=== PATIENT | female | born 1955 | race Caucasian/White ===

== ENCOUNTER 2022-10-15 10:43 | Outpatient (REF) | payer OTHER, SELFPAY ==
[2022-10-15 14:05] LABS: MANUAL DIFF FLAG NO
[2022-10-15 14:07] LABS: Basophils Absolute Auto 0.1 X10*3/uL (0.0-0.2); Basophils Percent Auto 1.1 % (0-2); Eosinophils Absolute Auto 0.4 X10*3/uL (0.0-0.4); Hematocrit 40.9 % (37.0-47.0); Hemoglobin 13.4 g/dl (12.0-16.0); Imm Gran Abs Auto 0.01 X10*3/uL (0.00-0.03); Imm Gran Pct Auto 0.1 % (0.0-0.4); Lymphocytes Percent Auto 27.7 % (20-40); Mean Corpuscular HGB Conc 32.8 g/dl (31.0-35.0); Mean Corpuscular Hemoglobin 30.9 pg (27.0-33.0); Mean Corpuscular Volume 94.2 fL (80.0-98.0); Mean Platelet Volume 10.6 fL (9.4-12.3); Monocytes Absolute Auto 0.7 X10*3/uL (0.1-1.2); Monocytes Percent Auto 9.4 % (2-11); Neutrophils Absolute Auto 4.2 x10*3/uL (2.0-8.3); Neutrophils Percent Auto 56.7 % (45-73); Platelet Count 256 X10*3/uL (160-400); Red Blood Count 4.34 X10*6/uL (4.20-5.50); Red Cell Distribution Width 12.8 % (11.0-16.0); White Blood Count 7.4 X10*3/uL (4.8-10.8)
[2022-10-15 14:13] LABS: Appearance Urine Clear; Color Urine Yellow; Glucose Urine UA Negative (Negative); Leukocyte Esterase Urine Small (1+) (Negative); Nitrite Urine Negative (Negative); PH 6.5 (5.0-9.0); Specific Gravity - Urine 1.015 (1.005-1.025); UMIC TRIGGER UA YES; Urine Blood Negative (Negative); Urine Ketones Negative (Negative); Urine Protein Negative (Neg-Trace)
[2022-10-15 14:22] LABS: Alanine Aminotransferase 10 U/L (0-31); Albumin Level 4.2 g/dL (3.5-5.0); Alkaline Phosphatase 42 U/L (39-117); Anion Gap 14 (12-20); Aspartate Amino Transferase 13 U/L (5-31); Bilirubin Total 0.7 mg/dL (0.0-1.0); Blood Urea Nitrogen 13 mg/dL (9-16); Calcium 9.3 mg/dL (8.4-10.2); Carbon Dioxide 26 mmol/L (22-29); Chloride 105 mmol/L (96-108); Cholesterol 242 mg/dL; Estimated Glomerular Filt Rate > 60; Glucose Fasting 87 mg/dL (60-99); HDL Cholesterol 57 mg/dL; LDL Cholesterol Calculated 166 mg/dl; Potassium 3.5 mmol/L (3.3-5.1); Sodium 141 mmol/L (135-145); Total Protein 6.7 g/dL (6.5-8.0); Triglycerides 95 mg/dL
[2022-10-15 14:30] LABS: Bacteria Urine None Seen (None Seen); Hyaline Casts Urine 0-2 /LPF (0-2)
[2022-10-15 14:36] LABS: TSH reflex Free T4 1.81 uIU/mL (0.32-4.0)
[2022-10-15 15:01] LABS: Microalbum/Creatinine Ratio Ur 5.6 ug/mg cr
== END 2022-10-15 10:44 | disposition home or self-care (01) ==
LOC: HO.WFDLDS 10:43
PROVIDERS: Visit Provider Family Medicine
DX: Z00.00 Encounter for general adult medical examination without abnormal findings (principal); I10 Essential (primary) hypertension
CPT/HCPCS: 36415; 80053; 80061; 81001; 82043; 84443; 85025

== ENCOUNTER 2023-04-13 15:34 | Outpatient (AMB) | payer MEDICARE, SELFPAY ==
--- NOTE | 2023-04-13 15:37 | A.OFFPC_ITS ---
Vital Signs 04/13/23 15:38 Height 5 ft 6 in Weight 136 lb 7 oz BMI 22.0 BP 122/76 Blood Pressure Location Lt brachial Position Sitting Respiration 12 Pulse 95 Pulse Source Pulse Oximeter Temp 97.8 F Temp Source Temporal Artery Scan Pulse Oximetry (%) 99 Oxygen Delivery Method Room Air Intake Visit Reasons: Vitrectomy right eye 04/14/23 Topography Technician Required: Yes Topography Technician Name: DaughterIn Law (Vanessa) Accompanied by: Grand Child Allergies No Known Allergies Allergy (Verified 04/13/23 15:54) Tobacco use date assessed: 04/13/23 Fall risk assessment: No Falls in past year Last assessed Fall Risk: 04/13/23 Dental Screening Dental Screen Date: 04/13/23 Did you have a dental visit in the last 12 months?: No Did you have a dental problem in the last 6 months where you did not have access to dental care?: No Was dental information given to patient?: Patient has dentist HPI HPI Comments History of Present Illness Details 67-year-old Moldovan speaking female, accompanied by her [id number], presents for a preop visit for vitrectomy of the right, scheduled tomorrow. She notes h/o cataract and a big hole in the right eye. She is not on prescription medication. No acute symptoms at this time. [facility] Medical History (Updated 04/13/23 @ 16:25 by Eren Nicholson CNP) No pertinent past medical history Surgical History (Updated 04/13/23 @ 15:55 by Viktoriya Melvin MA) No pertinent past surgical history Social History Household Members: Spouse Housing: House Are you a primary pharmacy care coordinator to a significant other at home: No Do you presently have visiting nurse or other home services: No 75 years or older and lives alone: No Alcohol intake: current Alcohol intake frequency: does not drink Patient Tobacco Use Status: Current everyday Tobacco user Tobacco use type: Cigarette Cigarettes Per Day: 6 e-Cigarette/Vaping Use: Never Used service: No Current occupational status: employed 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 Current occupational exposures/hazards: No Cognitive needs: No Hearing needs: No Vision needs: No Review of Systems Const Details: Const Denies chills, Denies fatigue, Denies fever(s), Denies headache(s) and Denies weakness ENT Denies dizziness and Denies headache(s) Card Denies chest pain, Denies lightheadedness, Denies dyspnea and Denies other (Palpitations) Resp Denies cough, Denies dyspnea, Denies wheezing and Denies other ( shortness of breath) GI Denies abdominal pain, Denies melena, Denies hematochezia, Denies change in bowel habits, Denies dyspepsia and Denies nausea Denies hematuria and Denies dysuria Musc Denies abnormal gait, Denies myalgias, Denies arthralgias, Denies numbness and Denies tingling Skin/Breast Denies rash, Denies unusual bruising and Denies wounds Neuro Denies abnormal gait, Denies dizziness, Denies headache(s), Denies memory loss, Denies numbness, Denies Sensory deficit (Neuro), Denies tingling and Denies weakness Psych Denies anxiety, Denies depression, Denies memory loss Endo Denies cold intolerance, Denies fatigue, Denies heat intolerance, Denies polydipsia and Denies polyuria Aller/Immun Denies wheezing Physical exam (Primary Care) Vital Signs: Last Vital Signs Temp 97.8 F 04/13/23 15:38 Pulse 95 04/13/23 15:38 Resp 12 04/13/23 15:38 BP 122/76 04/13/23 15:38 Pulse Ox 99 04/13/23 15:38 Oxygen Delivery Method Room Air 04/13/23 15:38 BMI result Body Mass Index 22.0 Tobacco/Smoking Status: Tobacco use Status Tobacco use date assessed 04/13/23 04/13/23 16:00 Patient Tobacco Use Status Current everyday Tobacco 04/13/23 16:00 Tobacco use type Cigarette 04/13/23 16:00 e-Cigarette/Vaping Use Never Used 04/13/23 16:00 Const Other: General: no acute distress and well developed Nutritional Appearance: well nourished Orientation/consciousness: patient oriented x3 HENMT Head: Yes normocephalic and Yes atraumatic Eyes General: appearance normal, both eyes and all related structures Pupils: Equal, round and reactive pupils present EOM: EOMs intact bilaterally Resp Effort & Inspection: normal respiratory effort Auscultation: clear to auscultation bilaterally Cardio Rate: regular rate Rhythm: regular rhythm Heart sounds: S1 normal heart sound present, S2 normal heart sound present, no gallops, no murmurs and no rubs GI Palpation (GI): No Abdominal aortic bruit present, Soft to palpation, nontender, No hepatosplenomegaly present and No Rebound tenderness present Auscultation: normal bowel sounds General: Yes no CVA tenderness Back/Spine/Pelvis Back: no CVA tenderness Cervical Spine: cervical ROM normal and No Cervical spine tenderness Thoracic/Lumbar Spine: thoraco-lumbar ROM normal, No pain with thoraco-lumbar ROM, No thoracic spinal tenderness and No lumbar spinal tenderness Extrem General: Yes normal to inspection, No edema and No calf tenderness Skin General: warm and dry. Normal skin color. Normal skin turgor Lesions: no lesions Rashes: no rashes Trauma: no lacerations or abrasions Wounds: no wounds Nails: normal Neuro General: patient oriented x3, gait normal and no focal neuro deficit Cranial nerves: Yes Equal, round and reactive pupils present Cognition (Neuro): normal cognition Gait exam (Neuro): Normal gait present Sensory Exam: No Sensory deficit (Neuro) Psych Appearance: grossly normal Affect: normal affect Attitude: cooperative Thought process: Normal thought process present Assessment and Plan Assessment & Plan (1) Preop examination: Code(s): Z01.818 - Encounter for other preprocedural examination Plan: Normal physical exam VSS, LSC, heart RRR Her last labs in October where unremarkable EKG revealed normal sinus rhythm, normal axis, normal interval, no ST/T change No acute symptoms Patient he is currently medically stable and has no contraindications for vitrectomy Follow-up with symptoms or concerns Verbalized understanding and agreed with the plan. Interpretation by the patient's daughter in-law per patient's preference. Coding Level of Care Code Est Pt Level 2 (99788) Diagnoses Preop examination Z01.818
[2023-04-13 15:38] VITALS: BP 122/76; PULSE 95; RESP 12; TEMP 36.6; O2SAT 99; BMI 22.0
== END 2023-04-13 16:31 | disposition home or self-care (01) ==
PROVIDERS: PCP Family Medicine; Visit Provider Nurse Practitioner Family
DX: Z01.818 Encounter for other preprocedural examination (principal)
CPT/HCPCS: 99212